=== PATIENT | female | born 1965 | race Caucasian/White ===

== ENCOUNTER 2023-08-04 19:34 | Emergency (ER) | payer OTHER, SELFPAY ==
[2023-08-04 19:36] VITALS: BP 191/101
[2023-08-04 20:28] VITALS: BP 161/95; BMI 22.3
--- NOTE | 2023-08-04 20:48 | ED.GENMED ---
History of Present Illness
General
Chief Complaint: Facial Problem
Time Seen by Provider: 08/04/23 20:36
History of Present Illness
History of Present Illness:
HPI: Patient presents due to left facial palsy. This started over the past 2 days. She does live in the [facility] and is outside frequently and did report a tick bite and noted bull's-eye rash recently. Therefore urgent care patient placed patient on
amoxicillin (instead of doxycycline as she is frequently outside). She did have a headache earlier but over the last few days the headache has significant improved.
EXAM:
GENERAL: Well appearing in no distress
HEENT: Moist oral mucosa, no lesions noted at the left TM
CARDIOVASCULAR: No murmurs, normal heart rate, regular rhythm, No chest wall tenderness
PULMONARY: No respiratory distress, breath sounds are clear and equal
ABDOMEN: Soft with no peritoneal signs, no tenderness
NEUROLOGIC: Subtle left-sided facial nerve palsy that involves the left upper lid excellent strength all extremities, no coordination deficits, no sensory deficits
PSYCHIATRIC: Appropriate mental status, normal insight and judgement
EXTREMITIES: Nontender, no edema, moves all extremities equally
SKIN: No rash, no lesions
TIME OF INITIAL ENCOUNTER: 8:40 PM
NUMBER AND COMPLEXITY OF PROBLEMS ADDRESSED AT THE ENCOUNTER
� Chronic conditions affecting care: No significant past medical history
� Acute Exacerbation and/or Progression of Chronic Illness: This is an acute problem
� Differential Diagnosis includes: Lyme disease, Charlton's palsy
AMOUNT AND/OR COMPLEXITY OF DATA TO BE REVIEWED AND ANALYZED
� I performed an independent evaluation of and my interpretation is:
EKG: On the monitor tech, the patient is in a normal sinus rhythm with normal rate
CT:
X-rays:
Laboratory Studies:
Other:
� Review of other/old records: No old records available for review
� Clinical information was obtained by an independent historian: Spoke to at bedside
� Prescriptions/Medications Considered but not given:
� Further testing considered but not performed: Offered and considered testing for Lyme however the patient was already evaluated for this and is already on amoxicillin and patient agrees to hold off on any formal testing. I
offered and considered CT of the brain as the patient reported headache earlier however her symptoms have spontaneously improved and she prefers to hold off on this at this time.
RISK OF COMPLICATIONS AND/OR MORBIDITY OR MORTALITY OF PATIENT MANAGEMENT
� Social determinants of health affecting care: Lives at home
� Discussion with other providers:
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 I suspect that the etiology is related to Lyme disease as she did have bull's-eye
rash earlier. I did add Valtrex in case this could be a herpetic etiology and also will try steroids as well. She is encouraged to try to keep the eye moist.
Phy Exam
Physical Exam
Physical Exam:
See HPI
Course
Vital Signs
Initial and Last Documented VS:
Initial Vital Signs
Temp Pulse Resp BP Pulse Ox
98.2 F 88 18 191/101 97
08/04/23 19:36 08/04/23 19:36 08/04/23 19:36 08/04/23 19:36 08/04/23 19:36
Last Documented Vital Signs
Temp Pulse Resp BP Pulse Ox
98.2 F 72 18 161/95 98
08/04/23 19:36 08/04/23 20:28 08/04/23 20:28 08/04/23 20:28 08/04/23 20:28
*Critical Care Note
Total Time (30-74mins, 75-104mins- exclusive of procedures): Not Applicable
ED Attending Note
-
Portions of this chart may have been created with voice recognition software.� Occasional wrong word or��sound alike� substitutions may have occurred due to the inherent limitations of voice recognition software.
Discharge Plan
Departure
Patient Disposition: Home (Routine Discharge)
Date of Disposition: 08/04/23
Time of Disposition: 20:45
Patient with high blood pressure during this ER visit?: Yes
Discharge Problem:
Charlton's palsy
Instructions: Charlton's Palsy (DC)
Prescriptions:
New
prednisone 50 mg tablet
50 mg PO DAILY Qty: 7 0RF
valacyclovir [Valtrex] 1 gram tablet
1,000 mg PO TID Qty: 21 0RF
Activity Restrictions/Additional Instructions:
Start steroids and Valtrex in the morning. Return here if worse. Your blood pressure was high and I recommend follow-up with your primary care doctor for reassessment. Use an [id number] eye ointment or eyedrops to help keep the left eye
lubricated.
Interventions
Interventions:
*Risk Screen - Suicide Last Done: 08/04/23 19:38
*General Assessment Last Done: 08/04/23 19:38
*Neglect/Abuse Screening Last Done: 08/04/23 19:38
ED- Fall Risk Assessment Last Done: 08/04/23 20:33
*ED COVID-19 Vaccine History Last Done: 08/04/23 20:32
ED- Neurological Assessment Last Done: 08/04/23 20:33
ED-Skin Assessment Last Done: 08/04/23 20:33
Discharge Date and Time
Print Language: PERSIAN
== END 2023-08-04 20:55 | disposition home or self-care (01) ==
LOC: EMR 19:34
PROVIDERS: EMERGENCY PHYSICIAN Emergency Medicine; FAMILY PHYSICIAN Family Medicine
DX: G51.0 Bell's palsy (principal)
CPT/HCPCS: 99282